=== PATIENT | female | born 1960 | race Caucasian/White ===

== ENCOUNTER 2018-07-25 03:34 | Emergency (ER) | payer OTHER ==
[~2018-07-25] VITALS: Ht 149.9 cm; Wt 76.7 kg
[~2018-07-25 03:34] MED LIST: AZIT-62 PO; BUPR150T2 PO; CEFU500T PO; FLUT1DIS IH; FURO80TA86 PO; LORA-259 PO; LUBI24CA5 PO; POTA20TA83 PO; PROP1TAB3 PO; RABE20TA18 PO; SIMV20TA6 PO; WARF2TAB2 PO
[2018-07-25 03:40] VITALS: BP_SYST 141
[2018-07-25] MEDS ORDERED: ACETAMINOPHEN 500 MG TABLET PO ONE (04:15)
[2018-07-25] MEDS ORDERED: ONDANSETRON 4 MG ODT TAB PO ONE (04:15)
[2018-07-25 04:22] VITALS: BP_SYST 136
== END 2018-07-25 04:21 | disposition home or self-care (01) ==
LOC: SED 03:34
DX: H01.004 Unspecified blepharitis left upper eyelid (principal); J44.9 Chronic obstructive pulmonary disease, unspecified; Z79.899 Other long term (current) drug therapy
CPT/HCPCS: 99283; Q0162

== ENCOUNTER 2020-02-20 02:06 | Emergency (ER) | payer OTHER ==
[~2020-02-20] VITALS: Ht 149.9 cm; Wt 75.7 kg
[2020-02-20 02:10] VITALS: BP_SYST 157
--- NOTE | 2020-02-20 02:15 | NUR ---
Patient to ER bed 7 to gown for evaluation. Side rails up. Report given to AHRRY TAYLOR.
--- NOTE | 2020-02-20 02:18 | NUR ---
Patient came to ER with family. C/O right leg pain x 5 days. Patient states "right upper leg pain, radiate to lower back for 5 days, no injury or trauma." A/O,X4, right upper leg pain, pain rate 10/10, radiate to lower leg and lower back.
--- NOTE | 2020-02-20 02:26 | NUR ---
NELIDA Fuller at bedside examining patient.
[2020-02-20] MEDS ORDERED: MORPHINE 4 MG/ML INJ. SYRINGE IVP ONE ×2 (02:30→04:00)
--- NOTE | 2020-02-20 02:43 | NUR ---
# 20 gauge angiocath placed to RT AC. Use of asceptic technique. Opsite placed over site. Blood return noted. Blood for lab drawn from site. Flushed with 10 cc of normal saline. No evidence of infiltration noted. Patient tolerated well.
[2020-02-20] MEDS ORDERED: ONDANSETRON HCL 4 MG/2 ML VIAL IVP ONE (02:45)
[2020-02-20 02:51] LABS: BILIRUBIN,URINE NEGATIVE (NEGATIVE); CLARITY/URINE CLEAR (CLEAR); COLOR,URINE YELLOW (YELLOW); GLUCOSE,URINE NEGATIVE (NEGATIVE); KETONES,URINE NEGATIVE (NEGATIVE); LEUKOCYTE ESTERASE ,URINE NEGATIVE (NEGATIVE); NITRITE, URINE NEGATIVE (NEGATIVE); PH,URINE 6.5 (5.0-8.0); PROTEIN URINE NEGATIVE (NEGATIVE); UROBILINOGEN,URINE 0.2 (0.2-1.0)
[2020-02-20 02:52] LABS: BLOOD, URINE TRACE (NEGATIVE)
--- NOTE | 2020-02-20 02:53 | NUR ---
x-ray at bedside.
[2020-02-20 02:57] LABS: BACTERIA,URINE FEW /HPF (None Seen); WBC,URINE 0-3 /HPF (0-3)
--- NOTE | 2020-02-20 03:26 | NUR ---
Patient came back from CT scan.
[2020-02-20] MEDS ORDERED: CYCLOBENZAPRINE HCL 10 MG TABLET (FLEXERIL) PO ONE (04:00)
--- NOTE | 2020-02-20 04:12 | NUR ---
ER Dr. Shipman explained treatment plan and recommended to Follow up with PMD.
[2020-02-20 04:25] VITALS: BP_SYST 142
--- NOTE | 2020-02-20 04:25 | NUR ---
Patient given written and verbal discharge instructions and verbalizes understanding. ER MD discussed with patient the results and treatment provided. Patient in stable condition. ID arm band removed. IV catheter removed intact and dressing applied, no active bleeding. Rx of Ibuprofen and Flexeril given. Patient educated on pain management and to follow up with PMD. Pain Scale 3/10. Opportunity for questions provided and answered. Medication side effect fact sheet provided.
== END 2020-02-20 04:25 | disposition home or self-care (01) ==
LOC: SED 02:06
DX: M54.41 Lumbago with sciatica, right side (principal); J44.9 Chronic obstructive pulmonary disease, unspecified; Z88.0 Allergy status to penicillin; Z88.5 Allergy status to narcotic agent; Z88.8 Allergy status to other drugs, medicaments and biological substances; Z79.899 Other long term (current) drug therapy
CPT/HCPCS: 72110; 81000; 96374; 96375; 96376; 99284; J2270; J2405

== ENCOUNTER 2022-05-19 22:14 | Emergency (ER) | payer BC ==
[~2022-05-19] VITALS: Ht 149.9 cm; Wt 68.0 kg
[~2022-05-19 22:14] MED LIST changes: +ALBU2.5V7 INH; +ALPR1TAB2 PO; +AMOX-426 PO; +ATOR20TA64 PO; +AZAT50TA18 PO; -AZIT-62 PO; +BIOT10006 PO; -BUPR150T2 PO; -CEFU500T PO; +CHOL2400 MC; +CITA20SO2 PO; +FERR-69 PO; +FLUT1AER INH; +GLUC-141 PO; +MAGN400T39 PO; +MONT5TAB14 PO; +MULT-1117 PO; +ONDA4TAB5 PO; +PANT20TA2 PO; +POTA-197 PO; +POTA10TA21 PO; -POTA20TA83 PO; +PRED20TA PO; -PROP1TAB3 PO; -RABE20TA18 PO; -SIMV20TA6 PO; +TIZA-321 PO; +TRAM50TA PO; +TRAZ-251 PO; -WARF2TAB2 PO; +WARF4TAB72 PO
[2022-05-19 22:17] VITALS: BP_SYST 124
[2022-05-19] MEDS ORDERED: MORPHINE 2 MG/ML INJ. SYRINGE IVP ONE (23:15)
[2022-05-19] MEDS ORDERED: LORazepam 2 MG/ML VIAL IVP ONE (23:15)
[2022-05-19] MEDS ORDERED: PROCHLORPERAZINE EDISYLATE 10 MG/2 ML VIAL IVP ONE (23:15)
--- NOTE | 2022-05-19 23:45 | NUR ---
pt is bib family member complaining of chest pain 05/24 and headache 06/23. hx of CHF, COPD, ANXIETY, DEPRESSION, HX OF OPEN HEART SX, COPD, AUTOIMMUNIE HEPATITIS. AA&OX4. TELUGU SPEAKING. B & B CONTINENT, AMBULATORY W/ STEADY GAIT. SAFE & HAZARD FREE ENVIRONMENT PROVIDED. NEEDS ANTICIPATED.CALL LIGHT W/IN REACH. ALL DUE MEDS GIVEN ORDERED
--- NOTE | 2022-05-19 23:48 | NUR ---
NELIDA Cantu at bedside examining patient.
--- NOTE | 2022-05-19 23:49 | NUR ---
# 20 gauge angiocath placed to LFA. Use of asceptic technique. Opsite placed over site. Blood return noted. Blood for lab drawn from site. Flushed with 10 cc of normal saline. No evidence of infiltration noted. Patient tolerated well.
--- NOTE | 2022-05-19 23:49 | NUR ---
CXR DONE AT BEDSIDE
[2022-05-20] MEDS ORDERED: fentaNYL CITRATE/PF 100 MCG/2 ML AMP IVP ONE (01:30)
[2022-05-20 01:53] LABS: BASOPHILS # (AUTO) 0.1 K/uL (0.0-0.2); BASOPHILS % (AUTO) 0.8 % (0.0-2.0); EOSINOPHILS # (AUTO) 0.1 K/uL (0.0-0.4); EOSINOPHILS % (AUTO) 0.7 % (0.0-4.0); HEMATOCRIT 37.8 % (36-48); HEMOGLOBIN 12.8 g/dL (12.0-16.0); LYMPHOCYTES # (AUTO) 1.2 K/uL (1.0-5.5); LYMPHOCYTES % (AUTO) 12.9 % (20.5-51.5); MEAN CORPUSCULAR HEMOGLOBIN 33 pg (27-31); MEAN CORPUSCULAR HGB CONC 34 % (32-36); MEAN CORPUSCULAR VOLUME 98 fL (79.0-98.0); MONOCYTES # (AUTO) 0.8 K/uL (0.0-1.0); MONOCYTES % (AUTO) 8.3 % (1.7-9.3); NEUTROPHILS # (AUTO) 7.3 K/uL (1.8-7.7); NEUTROPHILS % (AUTO) 77.3 % (40.0-70.0); PLATELET COUNT (AUTO) 217 K/uL (130-430); RED BLOOD CELL COUNT(AUTO) 3.86 MIL/uL (4.2-6.2); RED CELL DISTRIBUTION WIDTH 17.9 % (9.0-15.0); WHITE BLOOD COUNT (AUTO) 9.4 K/uL (4.8-10.8)
[2022-05-20 01:57] LABS: PROTHROMBIN TIME 28.5 SECS (9.5-12.5)
[2022-05-20] MEDS ORDERED: FUROSEMIDE 20 MG/2 ML VIAL IVP ONE ×2 (02:00→04:30)
[2022-05-20] MEDS ORDERED: NITROGLYCERIN 1 INCH (GM) OINT. TP ONE (02:00)
[2022-05-20 02:32] LABS: ANION GAP 7 (5-15); CALCIUM 9.3 mg/dL (8.4-11.0); CHLORIDE 102 mmol/L (98-107); CREATININE 0.92 mg/dL (0.55-1.30); GLUCOSE 102 mg/dL (70-99); POTASSIUM 3.3 mmol/L (3.5-5.1); SODIUM SERUM 139 mmol/L (136-145); UREA NITROGEN, BLOOD 12 mg/dL (8-21)
[2022-05-20 02:33] LABS: GFR AFRICAN AMERICAN 80 mL/min (>90)
[2022-05-20 02:40] LABS: ALANINE AMINOTRANSFERASE 23 U/L (12-78); ALBUMIN 3.6 g/dL (3.4-4.8); ASPARTATE AMINOTRANSFERASE 28 U/L (10-37); TOTAL BILIRUBIN 0.5 mg/dL (0.0-1.0)
[2022-05-20] MEDS ORDERED: ISOS30TA85 PO (03:13)
[2022-05-20] MEDS ORDERED: POTASSIUM CHLORIDE 20 MEQ TAB.PRT.SR ONE (04:27)
[2022-05-20] MEDS ORDERED: POTASSIUM CHLORIDE 20 MEQ TAB.PRT.SR PO ONE (04:30)
--- NOTE | 2022-05-20 04:48 | NUR ---
Patient given written and verbal discharge instructions and verbalizes understanding. ER MD discussed with patient the results and treatment provided. Patient in stable condition. ID arm band removed. IV catheter removed intact and dressing applied, no active bleeding. Rx of IMDUR given. Patient educated on pain management and to follow up with PMD. Pain Scale . Opportunity for questions provided and answered. Medication side effect fact sheet provided.
== END 2022-05-20 04:53 | disposition home or self-care (01) ==
LOC: SED 22:14
DX: R07.89 Other chest pain (principal); R06.02 Shortness of breath; R42 Dizziness and giddiness; J44.9 Chronic obstructive pulmonary disease, unspecified; I11.0 Hypertensive heart disease with heart failure; I50.9 Heart failure, unspecified; Z88.0 Allergy status to penicillin; Z88.1 Allergy status to other antibiotic agents; Z88.5 Allergy status to narcotic agent; Z79.899 Other long term (current) drug therapy
CPT/HCPCS: 99285; 96374; 71045; 96375 ×2; 80053; 83880; 85025; 85610; 84484; 36415; 93005 ×2; J2060; J0780; J2270; J1940; J3010

== ENCOUNTER 2022-08-03 05:24 | Emergency (ER) | payer BC ==
[~2022-08-03] VITALS: Ht 180.3 cm; Wt 70.3 kg
[~2022-08-03 05:24] MED LIST changes: +ISOS30TA85 PO
[2022-08-03 05:40] VITALS: BP_SYST 147
[2022-08-03] MEDS ORDERED: MORPHINE 4 MG INJ. 4 MG/ML VIAL IM ONE ×2 (06:15→07:15)
[2022-08-03] MEDS ORDERED: HYDR-3917 PO (06:53)
[2022-08-03 07:25] VITALS: BP_SYST 136
== END 2022-08-03 07:25 | disposition home or self-care (01) ==
LOC: SED 05:24
DX: M25.512 Pain in left shoulder (principal); Z88.0 Allergy status to penicillin; Z88.1 Allergy status to other antibiotic agents; Z88.5 Allergy status to narcotic agent; Z79.899 Other long term (current) drug therapy
CPT/HCPCS: 99284; 73030; 96372; J2270

== ENCOUNTER 2024-03-15 06:17 | Day surgery (SDC) | payer OTHER, BC ==
[~2024-03-15] VITALS: Ht 149.9 cm; Wt 63.5 kg
[~2024-03-15 06:17] MED LIST changes: +FLUT1DIS3 INH; +HYDR-3917 PO; +IRON1TAB90 PO; -MONT5TAB14 PO; +MONT5TAB80 PO; +NEU300 PO; +RANI-673 PO; +SIMV-343 PO; +WARF4TAB2 PO
[2024-03-15] MEDS ORDERED: MEPERIDINE 100 MG INJ. 100 MG/ML VIAL ONE ×2 (06:43→07:13)
[2024-03-15] MEDS ORDERED: MIDAZOLAM HCL 5 MG/5 ML VIAL ONE ×3 (06:44→08:11)
[2024-03-15 08:57] VITALS: O2SAT 99
[2024-03-15 14:14] VITALS: BP_SYST 105; PULSE 63; RESP 20
== END 2024-03-15 09:53 | disposition home or self-care (01) ==
LOC: SDS 06:17 → SMU 06:21 → SDS 09:53
PROVIDERS: ATTEND Internal Medicine Gastroenterology
DX: K59.00 Constipation, unspecified (principal); D12.3 Benign neoplasm of transverse colon; D12.5 Benign neoplasm of sigmoid colon; K64.8 Other hemorrhoids; J44.9 Chronic obstructive pulmonary disease, unspecified; K21.9 Gastro-esophageal reflux disease without esophagitis; F41.9 Anxiety disorder, unspecified; F32.A Depression, unspecified; I50.22 Chronic systolic (congestive) heart failure; M19.90 Unspecified osteoarthritis, unspecified site; F17.210 Nicotine dependence, cigarettes, uncomplicated; Z98.891 History of uterine scar from previous surgery; Z90.89 Acquired absence of other organs; Z98.890 Other specified postprocedural states; Z95.4 Presence of other heart-valve replacement; Z86.010 Personal history of colon polyps; Z88.5 Allergy status to narcotic agent; Z88.2 Allergy status to sulfonamides; Z79.899 Other long term (current) drug therapy
CPT/HCPCS: 45385; 45380; 88305; 99153; 99152; G0378; J2250; J2175; 45382; 45384